=== PATIENT | male | born 1945 | race Caucasian/White ===

== ENCOUNTER → 2016-12-06 | Outpatient (CLI) | payer OTHER ==
[~2016-12-06] VITALS: Ht 170.2 cm; Wt 90.7 kg
[~2016-12-06] MED LIST: ASPIRIN325 PO; CALCIUM 500 +1 EACH PO; GLUCOPHAGE XR750 MG PO; LISINOPRIL5 MG PO; LOPRESSOR25 PO; OMEGA-31000 M1 PO; SIMVASTATIN40 MG PO
--- NOTE | ~2016-12-06 | D ---
[facility] [place] [address] DISCHARGE SUMMARY Name: ZAHRAA REMY Room #: REG [facility].#: [id number] Admission: 12/06/16 Attend Phys: George Lo MD, FA Discharge: Date of : 45 Report #: [id number] THIS REPORT FOR: //name// CC: George Nguyen M.D. DATE OF SERVICE: 12/06/2016 DATE OF ADMISSION: 12/06/2016. DATE OF DISCHARGE: 12/06/2016. DISCHARGE DIAGNOSES: 1. Coronary artery disease. 2. Hypertension. 3. Hyperlipidemia. 4. Diabetes. 5. Carotid bruit. CONSULTANTS: None. PROCEDURES: Left heart catheterization via the right radial artery. PRIMARY CARE PHYSICIAN: Dr. Sammie Nguyen. HISTORY OF PRESENT ILLNESS: The patient is a 71-year-old white male who was brought to the outpatient department to undergo repeat cardiac catheterization. The patient initially presented in 2008 with chest pain and shortness of breath. He was found to have multivessel coronary artery disease. He had stent placed in the LAD, circumflex, and right coronary artery at [facility] in 2008. He had been followed by Dr. Kruger. Recently, he denied any significant chest pain, shortness of breath, palpitations, edema. He stays fairly active. He recently underwent a nuclear stress test in [place], [place], walked 7-1/2 minutes with no chest pain. Images showed a moderate sized partially partial reversible defect involving the lateral wall. Ejection fraction 49%. Because of his abnormal nuclear stress test and history of multivessel stenting. I recommended he undergo repeat cardiac catheterization. PAST MEDICAL HISTORY: Significant for cholecystectomy, carpal tunnel surgery, elbow surgery, hypertension, diabetes, hyperlipidemia. MEDICATIONS: Include aspirin, lisinopril, metoprolol, simvastatin, metformin. HE HAD A PREVIOUS INTOLERANCE TO LIPITOR. [facility] [address] [place] [address] DISCHARGE SUMMARY Name: ZAHRAA REMY [id number] Admission: 12/06/16 Attend Phys: George Lo MD, FA Discharge: Date of : 45 Report #: [id number] PHYSICAL EXAMINATION: VITAL SIGNS: Blood pressure 130/70, pulse 60. HEENT: Mucous membranes are moist. Left carotid bruit noted. CHEST: Clear to auscultation. CARDIOVASCULAR: Regular rate and rhythm. ABDOMEN: Soft. EXTREMITIES: No edema. SKIN: Warm, dry. NEUROLOGIC: Nonfocal. LABORATORY DATA: His potassium is 4.1, creatinine 1.0 and glucose 142, hemoglobin 16.1. Cholesterol 123, triglyceride 95, HDL 40, LDL 64. HOSPITAL COURSE: The patient brought to the outpatient department. I performed left heart catheterization via the right radial artery. Results showed an ejection fraction of 45%. There was no restenosis of the stent in the distal LAD. The small diagonal branch had a 70% stenosis. The stent in the circumflex had no restenosis, although distally there was a 50% stenosis in the marginal branch. The stent in the proximal right coronary artery had a 60% restenosis. The distal stent had no restenosis. The results were discussed. The patient was felt to have mild diffuse coronary artery disease. I recommended medical therapy. The patient is discharged on his home medications include lisinopril 5 mg a day. He is not to resume his metformin for 48 hours. He was continued, metoprolol tartrate 25 mg twice a day, simvastatin 80 mg at bedtime, aspirin 81 mg a day. He was discharged to return to care of Dr. Sammie Nguyen for routine medical care. He wants to have a carotid Doppler before his discharged because of his bruit. I recommend he continued exercise, maintain a tight control of diabetes. He is scheduled to return to see in the cardiology clinic 1 year for followup. He was to contact my office if he had recurrent chest pain, shortness of breath. The patient is not to do any heavy lifting with the right wrist for 48 hours. He was to contact my office if he noticed any bleeding or swelling. <ELECTRONICALLY SIGNED> By: George Lo MD, [facility] 12/08/16 0916 0912 0931 George Lo MD, FACC /nt
--- NOTE | ~2016-12-06 | CATHLAB ---
[facility] [address] [place] [employer] [place] [address] INVASIVE PROCEDURE REPORT Name: ZAHRAA REMY Room #: REG [facility].#: [id number] Admission: 12/06/16 Attend Phys: George Lo MD Discharge: Date of : 45 Date of Service: 12/06/16 0906 Report #: [id number] THIS REPORT FOR: //name// CC: George Nguyen MD DATE OF SERVICE: 12/06/2016 IMPRESSION: 1. Akinesis noted at the base of the inferior wall with an estimated ejection fraction of 45%. 2. Coronary artery disease manifested by a stent in the distal left anterior descending artery that had no significant restenosis. There was a stent in the mid circumflex artery that appeared to have no significant restenosis. There was a stent in the proximal and mid right coronary artery. The proximal stent appeared to have a 60% restenosis. PROCEDURE DICTATION: Retrograde left heart catheterization, selective coronary arteriograms, left ventriculography via the radial approach. PROCEDURE: The patient was brought to the cardiac catheterization lab in the fasting state and the right wrist area was cleaned with ChloraPrep and sterilely draped in usual fashion. The area was anesthetized with 1% lidocaine and a 6-Peruvian sheath was placed into the right radial artery using the percutaneous technique. The patient was given a cocktail of verapamil and nitroglycerin through side port of the arterial sheath. A 6-Peruvian JR4 diagnostic catheter was then inserted through the arterial sheath over a guidewire to within the ascending aorta. The patient was given heparin 50 units per kilogram intravenously. Several views then taken of the right coronary artery using omnipaque. This catheter was then removed and exchanged wire for a 6-Peruvian JL4 diagnostic catheter, which was inserted through the arterial sheath over a guidewire to the ostium of the left main artery. Several views were then taken of left coronary artery using omnipaque. This catheter was then removed and exchanged over a guidewire for 6-Peruvian pigtail catheter, which was inserted through the arterial sheath over a guidewire to within the left ventricle and the guidewire was removed. Left ventricular end diastolic pressures then recorded. Left ventricular cineangiogram then accomplished in the 35-degree OCONNOR position using 35 mL of Omnipaque at 12 mL per second and 600 PSI. Post-angiographic pressures were then recorded and the pigtail catheter then pulled back from left ventricle to the ascending aorta using continued pressure recording. The pigtail catheter then removed over an exchange wire. The patient was given another cocktail of verapamil and nitroglycerin through side port of the tear sheath. The sheath was removed and hemostasis achieved by applying a Vasc band. The patient left the cardiac catheterization lab in stable condition. [facility] [address] [place] [address] INVASIVE PROCEDURE REPORT Name: ZAHRAA REMY Room #: REG CL [facility]#: [id number] Admission: 12/06/16 Attend Phys: George Lo MD Discharge: Date of : 45 Date of Service: 12/06/16905 Report #: [id number] RESULTS: 1. LEFT VENTRICULOGRAPHY: There was normal left ventricular chamber size with akinesis noted at base of the inferior wall with an estimated ejection fraction of 45%. There was mild mitral regurgitation noted. 2. HEMODYNAMICS: Left ventricular end diastolic pressure 20 mmHg. There was no gradient across the aortic valve. 3. CORONARY ARTERIOGRAMS: The right coronary artery was a codominant vessel given off a posterior descending branch. There was noted to be a long metal stent in the proximal right coronary artery, this started at the ostium and extended to beyond the right ventricular branch. In the distal portion of the stent beyond the right ventricular branch, there was a tubular concentric 60% restenosis. Beyond the acute margin of the vessel also appeared to be a second long metal stent in the right coronary artery that had no significant restenosis. The left main artery had no significant disease. The left anterior descending artery was noted to give off a small first diagonal branch. At the takeoff of the diagonal branch, there is noted to be a tubular concentric 40% stenosis. The second diagonal branch was a small vessel and had a proximal tubular 70% stenosis. The apical portion of the LAD appeared to have a metal stent that had no significant restenosis. The circumflex artery was a codominant vessel. After 2 small marginal branches, it was noted to give off a large second marginal branch that distally was noted to bifurcate. There was noted to be a long metal stent that started in the main circumflex and extended into the large second marginal branch. There is no restenosis noted of the stent. However, beyond the stent, one of the branches of the second marginal branch was noted to have a 50% tubular stenosis. Distally, there was only a small posterolateral branch arising from the codominant circumflex. <ELECTRONICALLY SIGNED> By: George Lo MD, FACC 12/08/16 0916 0906 0945 George Lo MD, FACC /nt
[2016-12-06 07:07] VITALS: BP 131/64
[2016-12-06 07:08] LABS: HEMATOCRIT 48.3 % (42.0-52.0); HEMOGLOBIN 16.7 gm/dL (14.0-18.0); MCH 29.4 pg (26.0-34.0); MCHC 34.6 g/dL (28.0-37.0); MCV 85.1 fL (80.0-100.0); RBC 5.68 mil/uL (4.50-6.00); RDW 14.2 % (10.5-14.5); WBC 7.5 thou/uL (4.0-11.0)
[2016-12-06 07:16] LABS: ANION GAP 9 mmol/L (7-16); BUN 15 mg/dL (7-18); CALCIUM 8.7 mg/dL (8.5-10.1); CHLORIDE 103 mmol/L (98-107); CO2 27 mmol/L (21-32); GLUCOSE 142 mg/dL (74-106); POTASSIUM 4.1 mmol/L (3.5-5.1); SODIUM 139 mmol/L (136-145)
[2016-12-06 07:22] LABS: CHOLESTEROL 123 mg/dL (<200); HDL CHOLESTEROL 40 mg/dL (>40); LDL CHOLESTEROL 64 mg/dL (<100); TC:HDL 3.1 Ratio (Not establshd); TRIGLYCERIDE 95 mg/dL (<150); VLDL 19 mg/dL (<40)
== END ==
LOC: CATH 06:36
PROVIDERS: Internal Medicine Cardiovascular Disease
DX: I25.10 Atherosclerotic heart disease of native coronary artery without angina pectoris (principal); I10 Essential (primary) hypertension; E78.5 Hyperlipidemia, unspecified; E11.9 Type 2 diabetes mellitus without complications; Z90.49 Acquired absence of other specified parts of digestive tract; Z95.818 Presence of other cardiac implants and grafts; Z87.891 Personal history of nicotine dependence